=== PATIENT | male | born 1980 | race Asian ===

== ENCOUNTER → 2019-03-30 | Outpatient (CLI) | payer OTHER | END | disposition home or self-care (01) | LOC: MI 10:19 | PROC: BR30ZZZ Magnetic Resonance Imaging (MRI) of Cervical Spine (ICD-10-PCS; principal; 2019-03-30) | PROC: BP39ZZZ Magnetic Resonance Imaging (MRI) of Left Shoulder (ICD-10-PCS; 2019-03-30) | DX: M25.512 Pain in left shoulder (principal); G54.0 Brachial plexus disorders ==